=== PATIENT | female | born 1980 | race Caucasian/White ===

== ENCOUNTER 2024-01-08 06:26 | Emergency (ER) | payer BC, SELFPAY ==
[2024-01-08 06:26] VITALS: BMI 22.0
[2024-01-08 06:35] VITALS: BP 129/81; PULSE 69; RESP 17; TEMP 37; O2SAT 100
--- NOTE | 2024-01-08 06:43 | XR_ITS ---
Examination: Pelvic ultrasound, transabdominal, complete Technique: Transabdominal ultrasound of the pelvis performed using grayscale imaging Date and time of exam: January 08, 2024 0849 hours INDICATIONS: Onset right lower abdominal pain pelvic pain today FINDINGS: Uterus 9.5 x 4.6 x 5.5 cm 11 mm cervical cyst Endometrial stripe 0.5 cm No solid uterine mass or intrauterine gestation Right ovary 3.6 x 1.6 x 3.3 cm arterial flow small follicular cyst Left ovary 3.6 x 1.8 x 2.6 cm arterial flow small follicular cysts IMPRESSION: Negative examination
[2024-01-08] MEDS: HYDROcodone/APAP 5/325 TABLET 1 TAB PO (06:46)
[2024-01-08] MEDS: KETOROLAC INJ 30 MG/ML VIAL IM (06:47)
--- NOTE | 2024-01-08 07:10 | PD.EDRME ---
Rapid Medical Screening Exam RME Arrival date/time: 01/08/24 06:26 43-year-old female presents emergency department complaint of acute onset of right-sided pelvic pain which began 1 hour ago Chief Complaint: Abdominal Pain Time Seen by Provider: 01/08/24 06:41 Vital signs: Vital Signs Temperature 98.6 F 01/08/24 06:35 Pulse Rate 69 01/08/24 06:35 Respiratory Rate 17 01/08/24 06:35 Blood Pressure 129/81 01/08/24 06:35 Pulse Oximetry (%) 100 01/08/24 06:35 Oxygen Delivery Method Room Air 01/08/24 06:35
[2024-01-08 08:00] VITALS: BP 121/80; PULSE 73; RESP 16; TEMP 36.5; O2SAT 100
--- NOTE | 2024-01-08 08:08 | XR_ITS ---
Examination: CT abdomen with intravenous contrast CT pelvis with intravenous contrast 2-D coronal reconstructions 2-D sagittal reconstructions Date and time of exam:January 08, 2024 1021 hours Comparison January 19, 2023 INDICATIONS: Onset right lower abdominal pain beginning this morning. CTDI: vol (mGy) 7.09 DLP: (mGycm) 421 Technique: Multiple axial sections of the abdomen and pelvis have been obtained. 64 slice high-resolution scanner used. 3 mm axial sections have been obtained, post intravenous injection 60 cc [id number] 2-D sagittal, coronal reconstructions obtained. Low dose protocols were performed. One or more of the following dose reduction techniques were used; automated exposure control, adjustment of the mA and/or KV according to patient size, use of iterative reconstruction technique. Findings: Small liver cysts versus hemangiomas No intrahepatic biliary tract dilatation No gallstones Spleen not enlarged No pancreatic or adrenal mass No renal or ureteral calculi There is mild dilatation of the right renal collecting system and right ureter, suspicious for 1 mm distal right ureteral calculus coronal image 62 Aorta normal size No bowel obstruction No pericecal inflammatory change 20 mm right ovarian follicular cyst Anteverted uterus Moderate disc during L5-S1 IMPRESSION: Mild dilatation of the right renal collecting system which appears to be secondary to 1 mm distal right ureteral calculus
[2024-01-08 08:27] LABS: HCG Qualitative,Urine Negative
[2024-01-08 08:38] LABS: Basophils # (Auto) 0.1 Thou/mm3 (0.0-0.2); Basophils % (Auto) 1 % (0-2.5); Eosinophils # (Auto) 0.1 Thou/mm3 (0.0-0.5); Eosinophils % (Auto) 1 % (0-10); Hemoglobin 13.1 g/dL (12.0-16.0); Immature Granulocytes % (Auto) 0 % (0-0); Immature Granulocytes Auto 0.01 Thou/mm3 (0.00-0.00); Lymphocytes % (Auto) 12 % (10-50); Mean Corpuscular HGB Conc 33.6 g/dl (31.0-37.0); Mean Corpuscular Hemoglobin 31.5 pg (25.0-35.0); Mean Corpuscular Volume 94 fL (80-100); Monocytes # (Auto) 0.5 Thou/mm3 (0.0-0.8); Monocytes % (Auto) 6 % (0-12); Neutrophils # (Auto) 6.6 Thou/mm3 (1.8-7.7); Neutrophils % (Auto) 80 % (37-80); Nucleated Red Blood Cell % 0 /100 WBC (0); Platelet Count 252 Thou/mm3 (140-440); RDW Standard Deviation 42.5 fL (36.4-46.3); Red Blood Count 4.16 Miln/mm3 (4.00-5.20); White Blood Count 8.2 Thou/mm3 (3.6-11.0)
[2024-01-08 09:08] LABS: Alanine Aminotransferase 27 U/L (10-49); Albumin/Globulin Ratio 1.6 (1.2-2.2); Alkaline Phosphatase 65 U/L (46-116); Anion Gap 6 (7-16); Aspartate Amino Transferase 28 U/L (0-34); BUN/Creatinine Ratio 19 Ratio (12-20); Bilirubin,Total 0.4 mg/dL (0.3-1.2); Blood Urea Nitrogen 15 mg/dL (9-23); Calcium 8.6 mg/dL (8.3-10.6); Calcium (Corrected) 8.6 mg/dL (8.5-10.1); Carbon Dioxide 24.7 mMol/L (20.0-31.0); Chloride 103 mMol/L (98-107); Creatinine (Component) 0.8 mg/dL (0.6-1.3); Estimated Creatinine Clearance 91.5 mL/min (>60); Globulin 2.5 gm/dL (2.3-3.5); Glucose 92 mg/dL (74-106); Osmolality,Calculated 269 (275-295); Potassium 4.6 mMol/L (3.4-5.1); Sodium 134 mMol/L (136-145); Total Protein 6.5 gm/dL (5.7-8.2); eGFR > 60 See Note
[2024-01-08] MEDS: SODIUM CHLORIDE 0.9% 1000 ML 1,000 ML 999 ML IV (09:25)
--- NOTE | 2024-01-08 09:25 | PC.NURSE ---
pt states that pain is down at this time and will let nurse know when pain meds are needed.
--- NOTE | 2024-01-08 10:19 | PC.NURSE ---
PT TO CT
--- NOTE | 2024-01-08 10:52 | EDNOTE_ITS ---
ED Abdominal Pain RME/HPI General Chief Complaint: Abdominal Pain Stated complaint: ABD PAIN Time seen by provider: 01/08/24 06:41 Arrival date/time: 01/08/24 06:26 RME / HPI RME / HPI narrative: 01/08/24 06:26 43-year-old female presents emergency department complaint of acute onset of right-sided pelvic pain which began [address] LANDA MAIN ED EVALUATION 43 year old female with a history of laparoscopic bilateral salpingectomy, endometrial ablation, ovarian cysts, IBS presents to the ED with a complaint of abdominal pain that began this morning, shortly after waking. She describes the pain as sharp, stabbing, and waxing and waning in nature, localized to the right lower quadrant of the abdomen, without radiation. The pain is aggravated by movement and walking but improves with sitting still. She was in her usual state of health the evening prior and ate dinner without any complications. She denies any prior similar episodes of abdominal pain. She denies associated fever, chills, nausea, vomiting, diarrhea, or urinary complaints. Her LMP was 1 week ago and normal for her. Patient has a history of chronic constipation and was diagnosed with IBS following a colonoscopy five years ago. She reports occasionally using treatments for her IBS, including Amitriptyline, which she last took several months ago. Related Data Previous Rx's ?Medication ?Instructions ?Recorded tamsulosin 0.4 mg capsule (Flomax) 0.4 mg PO QDAY #7 caps 01/08/24 Allergies Allergy/AdvReac Type Severity Reaction Status Date / Time No Known Allergies Allergy Verified 01/08/24 06:56 Review of Systems Review of Systems Narrative Review of Systems: Gen: No fever, no chills, no weight loss EYES: No discharge, no visual changes, no pain HEENT: No ear pain, no congestion, no sore throat PULM: no shortness of breath, no cough, no congestion CV: No chest pain, no dyspnea on exertion, no palpitations, no chest tightness GI: No nausea, no vomiting, no diarrhea, +pain, no constipation : No frequency, no urgency,? no dysuria Musc/skel: No joint pain, no back pain Skin: No rash, no ecchymosis, no lesions Neuro: No weakness, no headache Past Medical History Past Medical History CARDIAC: Positive Heart Murmur (mitral valve) GASTROINTESTINAL: Positive Gastrointestinal Disorders, Ulcer and Irritable Bowel OTHER HISTORY: Positive Hospitalization and Chicken Pox Family History FAMILY HISTORY: Positive Family Gastrointestinal Problems Surgical History SURGICAL: Positive Eye Surgery (lasik surgery) Social History SMOKING STATUS: Never smoker SECOND HAND EXPOSURE: No ED Exam Narrative Physical exam: GENERAL APPEARANCE: AxOx4, no obvious distress, nontoxic appearing HEENT: NC, AT. MMM. EOMI, clear conjunctiva, oropharynx clear. NECK: Supple without lymphadenopathy. No stiffness or restricted ROM. HEART: Normal rate and regular rhythm, normal S1/S1, no m/r/g LUNGS: CTAB, moving air well. No crackles or wheezes are heard. ABDOMEN: Soft, mild right lower quadrant tenderness, positive psoas and obturator sign, nondistended with good bowel sounds heard. BACK: No midline C/T/L spine pain or deformity, No CVAT, no obvious deformity. EXTREMITIES: Without cyanosis, clubbing or edema. MUSCULOSKELETAL: FROM of all major joints, no chest tenderness NEUROLOGICAL: Grossly nonfocal. Alert and oriented, moving all 4 extremities. CN not formally tested but appear grossly intact. Skin: Warm and dry without any rash. Course Quality Measures none Orders Category Date Time Status CT Screening NOW Care 01/08/24 08:[address] abdomen pelvis w con Stat Exams 01/08/24 08:08 Completed US pelvic complete Stat Exams 01/08/24 06:43 Completed CBC Stat Lab 01/08/24 08:21 Completed Comprehensive Metabolic Panel Stat Lab 01/08/24 08:21 Completed HCG Qualitative,Urine Stat Lab 01/08/24 07:50 Completed Urinalysis Stat Lab 01/08/24 07:50 Completed HYDROcodone*/APAP 5/325 [[place] 5/325] Med 01/08/24 06:43 Discontinued 1 tab PO X1 ONE Ketorolac Inj [Toradol Inj] Med 01/08/24 06:43 Discontinued 30 mg IM X1 ONE Morphine Inj Med 01/08/24 08:15 Discontinued 6 mg IV X1 ONE Sodium Chloride 0.9% 1000 ml [Ns] 1,000 ml Med 01/08/24 08:07 Discontinued IV 999 mls/hr Reevaluation(s) Reevaluation #1: Patient remains clinically stable throughout the emergency department visit. We reviewed all the results, analysis, and treatment plans. Patient is amenable to discharge. Strict return precautions were outlined. Patient was discharged in stable condition. Time: 12:48 Vital Signs Vital signs: Vital Signs Temperature 98.6 F 01/08/24 06:35 Pulse Rate 69 01/08/24 06:35 Respiratory Rate 17 01/08/24 06:35 Blood Pressure 129/81 01/08/24 06:35 Pulse Oximetry (%) 100 01/08/24 06:35 Oxygen Delivery Method Room Air 01/08/24 06:35 Pulse ox is 100% on room air which is adequate. Abdominal Pain MDM MDM Narrative MDM Narrative:: Devika Reich am scribing for and in the presence of Dr. Landa. Patient data External records reviewed:: [facility] previous records (I reviewed H&P on 02/06/2019) Clinical information provided by:: patient Social determinants that could affect healthcare access:: none Patient has the following chronic illnesses:: laparoscopic bilateral salpingectomy, endometrial ablation, ovarian cysts, IBS How is presenting disease/condition affected by chronic disease/condition?: exacerbated by Evaluation data The following diagnostics were reviewed and interpreted by me:: lab results and radiology exam(s) Lab and/or radiology exams considered but not ordered:: None Interpretation Summary: Ordering Physician: Manjeet FUNG)Andrew NP Date of Service: 01/08/24 Procedure(s): US pelvic complete Accession Number(s): [id number] cc: Manjeet FUNG)Andrew NP; Judah Anderson MD; JOSSELIN GALLO ~ Examination: Pelvic ultrasound, transabdominal, complete Technique: Transabdominal ultrasound of the pelvis performed using grayscale imaging Date and time of exam: January 08, 2024 0849 hours INDICATIONS: Onset right lower abdominal pain pelvic pain today FINDINGS: Uterus 9.5 x 4.6 x 5.5 cm 11 mm cervical cyst Endometrial stripe 0.5 cm No solid uterine mass or intrauterine gestation Right ovary 3.6 x 1.6 x 3.3 cm arterial flow small follicular cyst Left ovary 3.6 x 1.8 x 2.6 cm arterial flow small follicular cysts IMPRESSION: Negative examination Dictated By:Judah Anderson MD Signed By:<Electronically signed by Judah Anderson MD in [place]>01/08/24 1123 Ordering Physician: Rodrigo Landa MD Date of Service: 01/08/24 Procedure(s): CT abdomen pelvis w con Accession Number(s): [id number] cc: Rodrigo Landa MD; Judah Anderson MD; JOSSELIN GALLO Examination: CT abdomen with intravenous contrast CT pelvis with intravenous contrast 2-D coronal reconstructions 2-D sagittal reconstructions Date and time of exam:January 08, 2024 1021 hours Comparison January 19, 2023 INDICATIONS: Onset right lower abdominal pain beginning this morning. CTDI: vol (mGy) 7.09 DLP: (mGycm) 421 Technique: Multiple axial sections of the abdomen and pelvis have been obtained. 64 slice high-resolution scanner used. 3 mm axial sections have been obtained, post intravenous injection 60 cc [id number] 2-D sagittal, coronal reconstructions obtained. Low dose protocols were performed. One or more of the following dose reduction techniques were used; automated exposure control, adjustment of the mA and/or KV according to patient size, use of iterative reconstruction technique. Findings: Small liver cysts versus hemangiomas No intrahepatic biliary tract dilatation No gallstones Spleen not enlarged No pancreatic or adrenal mass No renal or ureteral calculi There is mild dilatation of the right renal collecting system and right ureter, suspicious for 1 mm distal right ureteral calculus coronal image 62 Aorta normal size No bowel obstruction No pericecal inflammatory change 20 mm right ovarian follicular cyst Anteverted uterus Moderate disc during L5-S1 IMPRESSION: Mild dilatation of the right renal collecting system which appears to be secondary to 1 mm distal right ureteral calculus Dictated By:Judah Anderson MD Signed By:<Electronically signed by Judah Anderson MD in [place]>01/08/24 1123 Medications / Prescriptions Medications or Prescriptions considered but not ordered:: None Medication administrations:: Medication Administration History Discontinued Medications Hydrocodone Bitart/Acetaminophen (Hydrocodone/Apap 5/325 Tablet) 1 tab PO X1 ONE Stop: 01/08/24 06:44 Last Admin: 01/08/24 06:46 Dose: 1 tab Documented By: CVL Sodium Chloride (Ns) 1,000 mls @ 999 mls/hr IV .Q1H1M ONE Stop: 01/08/24 09:07 Last Infusion: 01/08/24 10:30 Dose: Infused Documented By: Admin: 01/08/24 09:25 Dose: 999 mls/hr Documented By: DO Ketorolac Tromethamine (Ketorolac Inj 30 Mg/Ml Vial) 30 mg IM X1 ONE Stop: 01/08/24 06:44 Last Admin: 01/08/24 06:47 Dose: 30 mg Documented By: CVL Morphine Sulfate (Morphine Sulf Inj 10 Mg/Ml Vial) 6 mg IV X1 ONE Stop: 01/08/24 08:16 Last Admin: 01/08/24 13:02 Dose: Not Given Documented By: DO Non-Admin Reason: Patient Refused See above Consultations Consultation(s) initiated? (list below): No Diagnosis Differential diagnosis abdominal pain: abdominal pain, acute appendicitis, calculus of kidney and other (Ovarian cyst) Most likely diagnosis given after review of the tests above:: Kidney stone Colic, ureteral Admission Indicated Admission indicated?: not indicated Admission Request Was there a request for admission?: No Disposition Plan Disposition Plan: Discharge Discharge Attestation Discharge Attestation: The patient and all family members were given an opportunity to ask questions and understood the discharge instructions. Discharge instructions specifically effects, indications for sooner follow up or return to the emergency department, and the expected course of current diagnosis. Patient condition: Stable Discharge Plan Plan Patient Disposition: HOME (Self Care) Prescriptions/Referrals Prescriptions/Med Rec: New tamsulosin [Flomax] 0.4 mg capsule 0.4 mg PO QDAY Qty: 7 0RF Referrals: JOSSELIN GALLO [Primary Care Provider] - In 1 week Problem List Clinical Impression: Kidney stone, Colic, ureteral Patient/Caregiver Discharge Instructions Education Materials: ED Kidney Stone w/ Colic Additional Instructions: Follow-up with your primary care doctor in 3 to 5 days for recheck. You can return to the emergency department sooner symptoms worsen or if you notice any new, concerning issues Print Language: Turkmen Stand Alone Forms: Jocelyne Award Info., Patient Portal Info Letter
[2024-01-08 11:42] LABS: Collection Type, Urine Clean Catch
[2024-01-08 11:49] LABS: Bilirubin,Urine Negative (Negative); Blood,Urine Negative (Negative); Clarity,Urine Clear (Clear/Hazy); Color,Urine Yellow (Lt Yel-Yel); Glucose, Urine Negative (Negative); Ketones,Urine Negative (Negative); Leukocyte Esterase,Urine Negative (Negative); Nitrite,Urine Negative (Negative); PH,Urine 6.5 (5.0-7.0); Protein,Urine Negative (Neg - Trace); RBC,Urine < 1 /hpf (0-3); Specific Gravity,Urine 1.029 (1.001-1.035); Squamous Epithelial Cell,Urine 6 /hpf (0-5); Urobilinogen,Urine Negative mg/dL (0.0-1.0); WBC,Urine < 1 /hpf (0-5)
[2024-01-08 12:28] VITALS: BP 102/78; PULSE 70; RESP 16; TEMP 36.6; O2SAT 100
== END 2024-01-08 13:04 | disposition home or self-care (01) ==
PROVIDERS: Nurse Practitioner Primary Care; Emergency Provider Emergency Medicine; PCP Nurse Practitioner Family
DX: N20.2 Calculus of kidney with calculus of ureter (principal)
CPT/HCPCS: 36415; 74177; 76856; 80053; 81001; 81025; 83690; 85025; 96360; 96372; 99285; A4649; J1885; J7030; Q9967; A9270

== ENCOUNTER → 2024-04-07 | Outpatient (CLI) | payer BC, SELFPAY ==
[2024-04-07 08:14] LABS: Misc Send Out* See Sep Rpt
--- NOTE | 2024-04-07 08:14 | XR_ITS ---
Examination: PA lateral chest 2 views TECHNIQUE: Upright PA lateral chest 2 views Exam date and time: April 07, 2024 0832 hours Comparison June 08, 2021 INDICATIONS: Mitral valve prolapse history, cardiac palpitations and shortness of breath one year. FINDINGS: Mild hyperexpansion Normal heart size Lungs are clear The osseous structures are intact IMPRESSION: Mild hyperexpansion
[2024-04-07 08:35] LABS: Basophils # (Auto) 0.1 Thou/mm3 (0.0-0.2); Basophils % (Auto) 2 % (0-2.5); Eosinophils % (Auto) 1 % (0-10); Hematocrit 42.1 % (36.0-46.0); Hemoglobin 14.7 g/dL (12.0-16.0); Immature Granulocytes % (Auto) 0 % (0-0); Immature Granulocytes Auto 0.02 Thou/mm3 (0.00-0.00); Lymphocytes # (Auto) 1.7 Thou/mm3 (1.0-4.8); Lymphocytes % (Auto) 27 % (10-50); Mean Corpuscular HGB Conc 34.9 g/dl (31.0-37.0); Mean Corpuscular Hemoglobin 31.7 pg (25.0-35.0); Mean Corpuscular Volume 91 fL (80-100); Monocytes # (Auto) 0.5 Thou/mm3 (0.0-0.8); Monocytes % (Auto) 8 % (0-12); Neutrophils # (Auto) 3.8 Thou/mm3 (1.8-7.7); Neutrophils % (Auto) 62 % (37-80); Nucleated Red Blood Cell % 0 /100 WBC (0); Platelet Count 296 Thou/mm3 (140-440); RDW Standard Deviation 40.5 fL (36.4-46.3); Red Blood Count 4.63 Miln/mm3 (4.00-5.20); White Blood Count 6.1 Thou/mm3 (3.6-11.0)
[2024-04-07 08:36] LABS: Misc Send Out* See Sep Rpt
[2024-04-07 08:53] LABS: Sed Rate (ESR) 16 mm/hr (0-20)
[2024-04-07 09:48] LABS: Alanine Aminotransferase 15 U/L (10-49); Albumin, Serum 4.3 gm/dL (3.5-5.0); Albumin/Globulin Ratio 1.4 (1.2-2.2); Alkaline Phosphatase 76 U/L (46-116); Anion Gap 9 (7-16); Aspartate Amino Transferase 19 U/L (0-34); BUN/Creatinine Ratio 16 Ratio (12-20); Bilirubin,Total 0.5 mg/dL (0.3-1.2); Blood Urea Nitrogen 14 mg/dL (9-23); C-Reactive Protein < 0.4 mg/dL (0.0-0.9); Calcium 9.6 mg/dL (8.3-10.6); Calcium (Corrected) 9.6 mg/dL (8.5-10.1); Carbon Dioxide 24.2 mMol/L (20.0-31.0); Chloride 107 mMol/L (98-107); Creatinine (Component) 0.9 mg/dL (0.6-1.3); Free T3 3.3 pg/mL (2.3-4.2); Free T4 (Free Thyroxine) 1.11 ng/dL (0.89-1.76); Globulin 3.1 gm/dL (2.3-3.5); Glucose 88 mg/dL (74-106); Magnesium 1.9 mg/dL (1.6-2.6); Osmolality,Calculated 278 (275-295); Potassium 4.6 mMol/L (3.4-5.1); Sodium 140 mMol/L (136-145); Thyroid Stimulating Hormone 1.09 uIU/mL (0.55-4.78); Total Protein 7.4 gm/dL (5.7-8.2); eGFR > 60 See Note
[2024-04-07 10:34] LABS: Folate 23.75 ng/mL (>5.38); Vitamin B12 399 pg/mL (211-911); Vitamin D 25 Hydroxy Total 50.4 ng/mL (7.3-40.2)
[2024-04-07 14:02] LABS: Cocci Serology, IgM Negative (Negative)
[2024-04-09 12:20] LABS: Cocci Serology, IgG Negative (Negative)
[2024-04-15 06:38] LABS: ANA Pattern CYTOPLASMIC; ANA Screen, IFA POSITIVE (NEGATIVE); Complement Component C3* 132 mg/dL (83-193); Complement Component C4c* 25 mg/dL (15-57); DNA (ds) Antibody* 2 IU/mL; HLA-B27 Antigen* NEGATIVE (NEGATIVE); Thyroglobulin Antibodies* <1 IU/mL (< OR = 1); Thyroid Peroxidase Antibodies* 1 IU/mL (<9)
[2024-04-16 06:43] LABS: CCP Antibody (IgG)* <16 Units; IgA, Serum* 521 mg/dL (47-310); IgG, Serum* 1299 mg/dL (600-1640)
== END | disposition home or self-care (01) ==
PROVIDERS: PCP Nurse Practitioner Family; Referring Provider Nurse Practitioner Family; Visit Provider Nurse Practitioner Family
DX: J98.4 Other disorders of lung (principal); B38.9 Coccidioidomycosis, unspecified; M79.10 Myalgia, unspecified site; L40.9 Psoriasis, unspecified; R53.83 Other fatigue; M25.50 Pain in unspecified joint; R51.9 Headache, unspecified
CPT/HCPCS: 36415; 71046; 80053; 82306; 82607; 82746; 82784; 83735; 84439; 84443; 84481; 85025; 85652; 86038; 86140; 86160; 86200; 86225; 86331; 86376; 86635; 86800; 86812

== ENCOUNTER → 2024-04-11 | Outpatient (CLI) | payer BC, SELFPAY ==
--- NOTE | 2024-04-11 08:52 | EKG_ITS ---
[facility] Test Date: 2024-04-11 Pat Name: DOTTIE HERNANDEZ Department: Room: - Gender: Female Consumer Analyst: RT STUDENT : 1980 Requested By: JOSSELIN GALLO Order Number: [id number] Reading MD: JOSSELIN GALLO Measurements Intervals [place] Rate: 66 P: 74 NM: 175 QRS: 71 QRSD: 81 T: 70 QT: 409 QTc: 431 Interpretive Statements SINUS RHYTHM POSSIBLE LEFT ATRIAL ENLARGEMENT [-0.1mV P WAVE IN V1/V2] Compared to ECG 11/14/2017 09:26:36 ST (T wave) deviation no longer present Early repolarization no longer present /store/S0/[id number]/ecg/[id number].pdf
== END | disposition home or self-care (01) ==
PROVIDERS: PCP Nurse Practitioner Family; Referring Provider Nurse Practitioner Family; Visit Provider Nurse Practitioner Family
DX: R07.9 Chest pain, unspecified (principal); R00.2 Palpitations
CPT/HCPCS: 93005

== ENCOUNTER → 2024-08-12 | Outpatient (CLI) | payer BC, SELFPAY ==
--- NOTE | 2024-08-12 08:00 | XR_ITS ---
Examination: Screening digital mammography, bilateral Computer aided detection 3-D breast Tomosynthesis, bilateral Date and time of exam: August 12, 2024, 0759 hours Compared to mammograms dating to November 08, 2016 Indication: Screening Technique: Nonmagnified MLO, CC views of the breasts to been obtained, reconstructed from 3-D Tomosynthesis images. R2 computer aided detection program utilized for evaluation of suspicious masses and/or abnormal calcifications. 3-D Tomosynthesis images obtained. Findings: The breasts are heterogeneously dense, which may obscure small masses Benign calcifications No interval suspicious masses Implants appear intact Impression: BI-RADS category II: Benign Findings. Recommend 1 year follow-up mammogram.
== END | disposition home or self-care (01) ==
LOC: CDIM 07:48
PROVIDERS: Referring Provider Nurse Practitioner Family; Visit Provider Nurse Practitioner Family
DX: Z12.31 Encounter for screening mammogram for malignant neoplasm of breast (principal); R92.323 Mammographic fibroglandular density, bilateral breasts; R92.1 Mammographic calcification found on diagnostic imaging of breast
CPT/HCPCS: 77063; 77067